=== PATIENT | female | born 1985 | race Caucasian/White ===

== ENCOUNTER 2019-09-02 00:17 | Emergency (ER) | payer OTHER ==
[~2019-09-02] VITALS: Ht 157.5 cm; Wt 90.7 kg
[2019-09-02] MEDS ORDERED: LEXAPRO20 MG PO (00:26)
[2019-09-02] MEDS ORDERED: BUSPIRONE HCL15 MG PO (00:27)
[2019-09-02 00:52] VITALS: BP 113/72
[2019-09-02] MEDS ORDERED: MOBIC15 MG PO (01:46)
== END 2019-09-02 02:05 | disposition home or self-care (01) ==
LOC: ER 00:17
DX: S16.1XXA Strain of muscle, fascia and tendon at neck level, initial encounter (principal); S60.211A Contusion of right wrist, initial encounter; Z90.49 Acquired absence of other specified parts of digestive tract; V43.52XA Car driver injured in collision with other type car in traffic accident, initial encounter; Y92.89 Other specified places as the place of occurrence of the external cause; Y93.89 Activity, other specified; Y99.8 Other external cause status